=== PATIENT | female | born 2000 | race Caucasian/White ===

== ENCOUNTER 2025-06-09 21:55 | Emergency (ER) | payer MEDICAID, SELFPAY ==
[2025-06-09 21:59] VITALS: BP 120/73; PULSE 120; RESP 18; TEMP 36.9; O2SAT 97
[2025-06-09] MEDS: DIAZEPAM 5 MG TABLET PO (22:35)
[2025-06-09 23:45] VITALS: BP 122/81; PULSE 89; RESP 18; TEMP 36.8; O2SAT 97
--- NOTE | 2025-06-10 00:16 | PD.EDANX ---
ED Anxiety RME/HPI General Chief Complaint: Chest Pain Stated Complaint: CHEST PAIN SOB Time Seen by Provider: 06/09/25 22:05 Arrival date/time: 06/09/25 21:55 24F with history of anxiety and drug use presents to ED with CP, SOB, and body numbness after taking a marijuana edible. Patient denies URI symptoms, OCPs, recent travel, and leg swelling. Limitations: no limitations Related Data Allergies Allergy/AdvReac Type Severity Reaction Status Date / Time NKA* Allergy Uncoded 06/09/25 22:05 Review of Systems Review of Systems Systems Reviewed: All systems reviewed, normal except as documented Constitutional Constitutional: Reports system reviewed and no additional complaints, except as documented, Denies fever(s) and Denies headache(s) ENT Ears, Nose, Mouth, and Throat: Denies disequilibrium and Denies headache(s) Cardiovascular Cardiovascular: Reports system reviewed and no additional complaints, except as documented, Reports as per HPI, Reports chest pain and Reports dyspnea Respiratory Respiratory: Reports system reviewed and no additional complaints, except as documented, Denies cough and Reports dyspnea Gastrointestinal Gastrointestinal: Reports system reviewed and no additional complaints, except as documented, Denies abdominal pain, Denies nausea and Denies vomiting Musculoskeletal Musculoskeletal: Reports numbness Neurologic Neurologic: Reports system reviewed and no additional complaints, except as documented, Reports as per HPI, Denies confusion, Denies disequilibrium, Denies headache(s) and Reports numbness Psychiatric Psychiatric: Denies confusion Past Medical History Social History SMOKING STATUS: Never smoker ED Exam General Limitations: Present no limitations General appearance: Present alert and anxious Head Head exam: Present atraumatic Eye Eye exam: Present normal appearance, PERRL and EOMI ENT ENT exam: Present normal exam, normal oropharynx and mucous membranes moist Neck Neck exam: Present normal inspection, full ROM and trachea midline Chest Chest inspection: Present normal inspection and symmetric chest wall rise Respiratory Respiratory exam: Present normal lung sounds bilaterally Cardiovascular Cardiovascular exam: Present regular rate, normal rhythm and normal heart sounds Abdominal Exam Abdominal exam: Present soft and normal bowel sounds Extremities Exam Extremities exam: Present normal inspection and full ROM Back Exam Back exam: Present normal inspection and full ROM Neurological Exam Neurological exam: Present alert, oriented X3 and CN II-XII intact Psychiatric Psychiatric exam: Present normal affect and normal mood Skin Skin exam: Present warm, dry, intact and normal color Course Quality Measures none Orders Category Date Time Status EKG (ED ONLY) *Do not use* NOW Care 06/09/25 22:11 Completed EKG (ED Only) Stat Exams 06/09/25 22:11 Ordered Diazepam [Valium] Med 06/09/25 22:28 Discontinued 5 mg PO X1 ONE Vital Signs Vital signs: Vital Signs Temperature 98.4 F 06/09/25 21:59 Pulse Rate 120 H 06/09/25 21:59 Respiratory Rate 18 06/09/25 21:59 Blood Pressure 120/73 06/09/25 21:59 Pulse Oximetry (%) 97 06/09/25 21:59 Oxygen Delivery Method Room Air 06/09/25 21:59 Anxiety MDM Narrative MDM Narrative: 24F with history of anxiety and drug use presents to ED with CP, SOB, and body numbness after taking a marijuana edible. Patient denies URI symptoms, OCPs, recent travel, and leg swelling. Physical exam reveals normal WOB. Patient is afebrile, alert, but very anxious. EKG is sinus tach of 136. Valium relieved symptoms. HR reduced to 80s after meds. Patient data External records reviewed:: [facility] previous records Clinical information provided by:: patient Social determinants that could affect healthcare access:: mental health Patient has the following chronic illnesses:: anxiety and drug use How is presenting disease/condition affected by chronic disease/condition?: caused by Evaluation data The following diagnostics were reviewed and interpreted by me:: EKG tracing(s) Lab and/or radiology exams considered but not ordered:: ordered Interpretation Summary: above Medications / Prescriptions Medications or Prescriptions considered but not ordered:: ordered Medication administrations:: Medication Administration History Discontinued Medications Diazepam (Diazepam 5 Mg Tablet) 5 mg PO X1 ONE Stop: 06/09/25 22:29 Last Admin: 06/09/25 22:35 Dose: 5 mg Documented By: Consultations Consultation(s) initiated? (list below): No Diagnosis Differential diagnosis anxiety: hyperventilation, panic disorder (attack) and acute anxiety Most likely diagnosis given after review of the tests above:: panic attack Admission Indicated Admission indicated?: not indicated Admission Request Was there a request for admission?: No Disposition Plan Disposition Plan: Discharge Discharge Attestation Discharge Attestation: The patient and all family members were given an opportunity to ask questions and understood the discharge instructions. Discharge instructions specifically effects, indications for sooner follow up or return to the emergency department, and the expected course of current diagnosis. Patient condition: Stable Discharge Plan Plan Patient Disposition: HOME (Self Care) Discharge Disposition comment: Stable Prescriptions/Referrals Referrals: Raul Braga MD [Primary Care Provider] - In 1 week Problem List Clinical Impression: Panic attack Patient/Caregiver Discharge Instructions Education Materials: ED Panic Attack Additional Instructions: Please follow-up with PCP within 24-48 hours and return immediately if symptoms worsen. Print Language: Nigerien Stand Alone Forms: Patient Portal Info Letter DILAN/CHEL Supervising Physician DILAN/CHEL Supervising Physician: Dr. Guillaume
== END 2025-06-09 23:39 | disposition home or self-care (01) ==
PROVIDERS: Emergency Provider Emergency Medicine; PCP Family Medicine
DX: F41.0 Panic disorder [episodic paroxysmal anxiety] (principal); R00.0 Tachycardia, unspecified
CPT/HCPCS: 93005; 99283; A9270